=== PATIENT | male | born 1980 | race Caucasian/White ===

== ENCOUNTER 2019-06-24 21:18 | Emergency (ER) | payer SELFPAY ==
[~2019-06-24] VITALS: Ht 177.8 cm; Wt 86.2 kg
[2019-06-24 22:21] LABS: Basophils # (auto) 0.1 uL; Basophils % (auto) 1.3 % (0.0-2.0); Eosinophils # (auto) 0 uL; Hematocrit 37.5 % (41.0-53.0); Hemoglobin 12.7 g/dL (13.5-17.5); Lymphocytes # (auto) 0.2 uL; Lymphocytes % (auto) 5.3 % (10.0-50.0); Mean Corpuscular Hemoglobin 32.8 pg (28.0-32.0); Mean Corpuscular Hgb Conc. 33.9 g/dL (32.0-36.0); Mean Corpuscular Volume 96.8 fL (80.0-100.0); Monocytes # (auto) 0.3 uL; Monocytes % (auto) 8.5 % (0.0-12.0); Neutrophils # (auto) 3.4 uL; Neutrophils % (auto) 84.9 % (37.0-80.0); Platelet Count (auto) 74 10^3/uL (140-450); Red Blood Cells 3.87 10^6/uL (4.5-5.90); Red Cell Distribution Width 13.8 % (11.8-14.3)
[2019-06-24 22:39] LABS: Albumin 4.1 g/dL (3.4-5.0); BUN/Creatinine Ratio 9.1; Calcium 9.1 mg/dL (8.5-10.1); Potassium 3.6 mmol/L (3.5-5.1)
[2019-06-24 22:48] LABS: Bilirubin, Total 0.4 mg/dL (0.2-1.0); Total Protein 8.3 g/dL (6.4-8.2)
[2019-06-25] MEDS ORDERED: SODIUM CHLORIDE 0.9% 1,000 ML IV ONE
[2019-06-25] MEDS ORDERED: LORazepam 2MG/ML-1ML VIAL ONE (00:02)
[2019-06-25] MEDS ORDERED: LORazepam 2MG/ML-1ML VIAL IV ONE (00:15)
[2019-06-25 00:22] LABS: Urine WBC None Seen /hpf (0 - 3)
[2019-06-25] MEDS: LORazepam 2MG/ML-1ML VIAL IV ONE ×2 (00:24)
[2019-06-25 00:30] LABS: Urine Bacteria NONE SEEN /hpf (None Seen); Urine Blood 1+ /uL (Negative); Urine Hyaline Cast FEW /lpf (0 - 2); Urine Specific Gravity 1.021 (1.001-1.035)
[2019-06-25 00:53] LABS: Amphetamine Screen, Urine NEGATIVE (NEGATIVE); Barbiturate Scree,Urine NEGATIVE (NEGATIVE); Benzodiazephine Screen, Urine NEGATIVE (NEGATIVE); Cannabinoid Screen, Urine NEGATIVE (NEGATIVE); Cocaine Screen, Urine NEGATIVE (NEGATIVE); Opiate Scree,Urine NEGATIVE (NEGATIVE); Phencyclidine Screen, Urine NEGATIVE (NEGATIVE)
[2019-06-25 03:00] VITALS: BP 137/92
== END 2019-06-25 03:30 | disposition left against medical advice (07) ==
LOC: EDBD 21:18 → ER 21:22
DX: R56.9 Unspecified convulsions (principal); F10.230 Alcohol dependence with withdrawal, uncomplicated; Y90.0 Blood alcohol level of less than 20 mg/100 ml; Z53.29 Procedure and treatment not carried out because of patient's decision for other reasons
CPT/HCPCS: 36415; 70450; 80053; 80307; 80320; 81001; 83735; 85025; 96361; 96374; 99284; J2060; J7030

== ENCOUNTER 2023-09-28 18:11 | Emergency (ER) | payer MEDICAID ==
[~2023-09-28] VITALS: Ht 182.9 cm; Wt 102.6 kg
[2023-09-28] MEDS ORDERED: HYDROcodone-ACET 10/325MG TAB PO ONE (20:00)
[2023-09-28] MEDS ORDERED: ONDANSETRON ODT 4 MG TAB PO ONE (20:00)
[2023-09-28] MEDS ORDERED: SODIUM CHLORIDE 0.9% 1,000 ML IVB ONE (20:00)
[2023-09-28 20:15] LABS: Basophils # (auto) 0.2 10 ^3/uL (0-0.2); Basophils % (auto) 3.9 % (0.0-2.0); Eosinophils # (auto) 0 10 ^3/uL (0-0.8); Eosinophils % (auto) 0.2 % (0.0-7.0); Hematocrit 41.6 % (41.0-53.0); Hemoglobin 13.5 g/dL (13.5-17.5); Lymphocytes # (auto) 1.2 10 ^3/uL (0.4-5.4); Lymphocytes % (auto) 26.6 % (10.0-50.0); Mean Corpuscular Hemoglobin 32.4 pg (28.0-32.0); Mean Corpuscular Hgb Conc. 32.5 g/dL (32.0-36.0); Mean Corpuscular Volume 99.7 fL (80.0-100.0); Monocytes # (auto) 0.5 10 ^3/uL (0-1.3); Monocytes % (auto) 11.6 % (0.0-12.0); Neutrophils # (auto) 2.6 10 ^3/uL (1.6-8.6); Neutrophils % (auto) 57.7 % (37.0-80.0); Nucleated Red Blood Cells % 0.1 %; Red Blood Cells 4.17 10^6/uL (4.5-5.90); Red Cell Distribution Width 16.3 % (11.8-14.3); White Blood Cell 4.5 10^3/uL (4.4-10.8)
[2023-09-28 20:16] VITALS: O2SAT 100
[2023-09-28] MEDS ORDERED: IOHEXOL 350 MG/ML 100ML IJ ONE (20:18)
[2023-09-28 20:29] LABS: INR 1.39 (0.9-1.15); Partial Thromboplastin Time 28.1 SEC (24.5-34.5); Prothrombin Time 14.3 sec (9.3-11.8)
[2023-09-28 20:40] LABS: Alanine Aminotransferase 58 U/L (7-40); Albumin 3.9 g/dL (3.2-4.8); Alkaline Phosphatase 79 U/L (46-116); Anion Gap 8 (5-15); Aspartate Aminotransferase 47 U/L (13-40); BUN/Creatinine Ratio 8.2 (10.0-20.0); Blood Urea Nitrogen 6 mg/dL (9-23); Calcium 8.4 mg/dL (8.7-10.4); Carbon Dioxide 24 mmol/L (20-30); Chloride 105 mmol/L (98-107); Glucose 79 mg/dL (74-106); Lipase 37 U/L (12-53); Magnesium 1.8 mg/dL (1.6-2.6); Sodium 137 mmol/L (136-145)
[2023-09-28 20:41] LABS: Bilirubin, Total 1.1 mg/dL (0.2-1.0); Total Protein 6.6 g/dL (5.7-8.2)
[2023-09-28 21:14] LABS: Blood Alcohol 52.3 mg/dL (<10)
[2023-09-28 21:38] LABS: Amphetamine Screen, Urine Neg (NEGATIVE); Barbiturate Scree,Urine Neg (NEGATIVE); Benzodiazephine Screen, Urine Neg (NEGATIVE); Cannabinoid Screen, Urine Neg (NEGATIVE); Cocaine Screen, Urine Neg (NEGATIVE); Opiate Scree,Urine Neg (NEGATIVE); Urine Bacteria NONE SEEN /hpf (None Seen); Urine Blood Negative /uL (Negative); Urine Clarity Clear (Clear); Urine Color Colorless (Yellow); Urine Protein, UAD Negative (Negative); Urine Specific Gravity 1.001 (1.001-1.035); Urine Urobilinogen Normal (Negative); Urine WBC <1 /hpf (0 - 3); Urine pH 5.5 (5.0-8.0)
[2023-09-28 21:40] LABS: Phencyclidine Screen, Urine Neg (NEGATIVE)
[2023-09-28] MEDS ORDERED: PANTOPRAZOLE 40 MG/10 ML VIAL INJ IV ONE (23:15)
[2023-09-28] MEDS ORDERED: FUROSEMIDE 40 MG/4 ML VIAL IV ONE (23:15)
[2023-09-29] MEDS ORDERED: IOHEXOL 350 MG/ML 100ML IJ ONE (01:31)
[2023-09-29 02:55] VITALS: BP 106/75; PULSE 89; RESP 17; TEMP 98.2; O2SAT 98
== END 2023-09-29 02:57 | disposition home or self-care (01) ==
LOC: ER 18:11
DX: K70.9 Alcoholic liver disease, unspecified (principal); I50.9 Heart failure, unspecified; R18.8 Other ascites; F10.10 Alcohol abuse, uncomplicated; Z86.2 Personal history of diseases of the blood and blood-forming organs and certain disorders involving the immune mechanism; Z79.899 Other long term (current) drug therapy; Y90.0 Blood alcohol level of less than 20 mg/100 ml
CPT/HCPCS: 36415; 71045; 74177; 80053; 80307; 80320; 81001; 83690; 83735; 85025; 85610; 85730; 96361; 96374; 96375; 99285; C9113; J1940; J7030; Q9967

== ENCOUNTER 2024-03-02 09:24 | Inpatient (IN) | payer MEDICAID ==
[~2024-03-02] VITALS: Ht 185.4 cm; Wt 109.1 kg
[2024-03-02] VITALS (7 sets, daily range): BP systolic 121; BP diastolic 71; PULSE 107–119; RESP 25; O2SAT 94–100
[2024-03-02 10:05] LABS: Basophils # (auto) 0.1 10 ^3/uL (0-0.2); Eosinophils # (auto) 0 10 ^3/uL (0-0.8); Eosinophils % (auto) 0.1 % (0.0-7.0); Hemoglobin 15.1 g/dL (13.5-17.5); Lymphocytes # (auto) 1.7 10 ^3/uL (0.4-5.4); Monocytes # (auto) 0.7 10 ^3/uL (0-1.3); Monocytes % (auto) 11.3 % (0.0-12.0); Nucleated Red Blood Cells % 0.2 %; White Blood Cell 5.9 10^3/uL (4.4-10.8)
[2024-03-02 10:07] LABS: Basophils % (auto) 2.5 % (0.0-2.0); Hematocrit 44.9 % (41.0-53.0); Lymphocytes % (auto) 28.6 % (10.0-50.0); Mean Corpuscular Hemoglobin 34.4 pg (28.0-32.0); Mean Corpuscular Hgb Conc. 33.6 g/dL (32.0-36.0); Mean Corpuscular Volume 102.6 fL (80.0-100.0); Neutrophils # (auto) 3.4 10 ^3/uL (1.6-8.6); Neutrophils % (auto) 57.5 % (37.0-80.0); Red Blood Cells 4.37 10^6/uL (4.5-5.90); Red Cell Distribution Width 14.3 % (11.8-14.3)
[2024-03-02] MEDS: SODIUM CHLORIDE 0.9% 1,000 ML IV ONE ×2 (10:16→10:24)
[2024-03-02] MEDS: AMIODARONE BOLUS KIT 100 ML IV ONE (10:16)
[2024-03-02] MEDS: ONDANSETRON HCL 4 MG/2 ML VIAL IV ONE (10:20)
[2024-03-02] MEDS: MORPHINE SULFATE 4 MG/ML SYR/VIAL IV ONE (10:21)
[2024-03-02 10:25] LABS: Alanine Aminotransferase 446 U/L (7-40); Albumin 4.4 g/dL (3.2-4.8); Alkaline Phosphatase 79 U/L (46-116); Anion Gap 16 (5-15); Aspartate Aminotransferase 613 U/L (13-40); BUN/Creatinine Ratio 13.6 (10.0-20.0); Blood Urea Nitrogen 16 mg/dL (9-23); Calcium 8.6 mg/dL (8.5-10.1); Carbon Dioxide 17 mmol/L (20-30); Chloride 106 mmol/L (98-107); Glucose 144 mg/dL (74-106); Potassium 3.6 mmol/L (3.5-5.1); Sodium 139 mmol/L (136-145)
[2024-03-02 10:26] LABS: Bilirubin, Total 1.1 mg/dL (0.2-1.0); Total Protein 7.2 g/dL (5.7-8.2)
[2024-03-02] MEDS: THIAMINE 100mg/ml INJ (200mg/2ml VIAL) IV ONE (10:50)
[2024-03-02] MEDS: AMIODARONE 450mg/250ml AE 250 ML IV SCH ×2 (10:50→20:00)
[2024-03-02] MEDS: chlordiazePOXIDE HCL 5 MG CAP PO ONE (11:34)
[2024-03-02] MEDS ORDERED: ACETAMINOPHEN 325 MG TAB PO PRN (14:00)
[2024-03-02] MEDS ORDERED: DOCUSATE SOD 100 MG CAP PO PRN (14:00)
[2024-03-02] MEDS ORDERED: NITROGLYCERIN 0.4 MG SL TAB SL PRN (14:00)
[2024-03-02] MEDS ORDERED: HYDROcodone-ACET 5/325MG TAB PO PRN (14:00)
[2024-03-02] MEDS ORDERED: MORPHINE SULFATE INJ 2 MG/ml SYRG IV PRN (14:00)
[2024-03-02] MEDS: ASPirin-EC 325mg tab PO ONE (15:05)
[2024-03-02] MEDS: HEPARIN SODIUM (PORCINE) 5000 UNITS/ML 1ML VIAL SC SCH (15:06)
[2024-03-02] MEDS: ONDANSETRON HCL 4 MG/2 ML VIAL IV PRN (15:12)
[2024-03-02] MEDS: LORazepam 2MG/ML-1ML VIAL IV PRN (16:54)
[2024-03-02 17:03] LABS: Urine Bacteria None Seen /hpf (None Seen)
[2024-03-02 17:17] LABS: Urine Blood Negative /uL (Negative); Urine Clarity Turbid (Clear); Urine Color Yellow (Yellow); Urine Hyaline Cast MOD /lpf (0 - 2); Urine Mucus FEW (None Seen); Urine Protein, UAD 2+ (Negative); Urine Specific Gravity 1.031 (1.001-1.035); Urine Urobilinogen 4 mg/dL (Negative); Urine WBC 4 /hpf (0 - 3); Urine pH 5.5 (5.0-9.0)
[2024-03-02 17:22] LABS: Amphetamine Screen, Urine Neg (NEGATIVE)
[2024-03-02 17:23] LABS: Barbiturate Scree,Urine Neg (NEGATIVE); Benzodiazephine Screen, Urine Neg (NEGATIVE)
[2024-03-02 17:24] LABS: Cannabinoid Screen, Urine Neg (NEGATIVE); Cocaine Screen, Urine Neg (NEGATIVE); Opiate Scree,Urine Pos (NEGATIVE); Phencyclidine Screen, Urine Neg (NEGATIVE)
[2024-03-02] MEDS: FOLIC ACID 1 MG, MULTIPLE VITAMIN 10 ML, MAGNESIUM SULF SDV 50% 8 MEQ, THIAMINE INJ 100... INJ SCH (18:17)
[2024-03-02 18:37] LABS: Base Excess -9.3 mmol/L (-2.0-2.0)
[2024-03-02] MEDS: DOBUTamine 1000MCG/ML 250 ML IV SCH (18:48)
[2024-03-02] MEDS: FUROSEMIDE 20 MG/2 ML VIAL IV ONE (18:48)
[2024-03-02 19:34] LABS: Magnesium 2.3 mg/dL (1.6-2.6)
[2024-03-02] MEDS ORDERED: LORazepam 2MG/ML-1ML VIAL IV PRN ×2 (21:00)
[2024-03-03] VITALS (17 sets, daily range): BP systolic 104–140; BP diastolic 66–88; PULSE 92–110; RESP 17–28; TEMP 98–98.5; O2SAT 91–98
[2024-03-03 05:16] LABS: Eosinophils # (auto) 0 10 ^3/uL (0-0.8); Lymphocytes # (auto) 0.7 10 ^3/uL (0.4-5.4); Monocytes # (auto) 0.8 10 ^3/uL (0-1.3); Nucleated Red Blood Cells % 0.1 %; White Blood Cell 7.5 10^3/uL (4.4-10.8)
[2024-03-03 05:19] LABS: Basophils # (auto) 0.1 10 ^3/uL (0-0.2); Basophils % (auto) 0.7 % (0.0-2.0); Hematocrit 40.8 % (41.0-53.0); Hemoglobin 13.9 g/dL (13.5-17.5); Lymphocytes % (auto) 8.9 % (10.0-50.0); Mean Corpuscular Hemoglobin 34.6 pg (28.0-32.0); Mean Corpuscular Volume 101.8 fL (80.0-100.0); Monocytes % (auto) 11.1 % (0.0-12.0); Neutrophils # (auto) 5.9 10 ^3/uL (1.6-8.6); Neutrophils % (auto) 79.3 % (37.0-80.0); Red Blood Cells 4.01 10^6/uL (4.5-5.90); Red Cell Distribution Width 14.7 % (11.8-14.3)
[2024-03-03 05:34] LABS: Alanine Aminotransferase 617 U/L (7-40); Albumin 4.1 g/dL (3.2-4.8); Alkaline Phosphatase 66 U/L (46-116); Anion Gap 10 (5-15); Aspartate Aminotransferase 860 U/L (13-40); BUN/Creatinine Ratio 12.2 (10.0-20.0); Blood Urea Nitrogen 12 mg/dL (9-23); Calcium 8.7 mg/dL (8.5-10.1); Carbon Dioxide 23 mmol/L (20-30); Chloride 106 mmol/L (98-107); Cholesterol 123 mg/dL (< 200); Glucose 110 mg/dL (74-106); HDL Cholesterol 39 mg/dL (40-59); INR 1.31 (0.9-1.15); LDL Cholesterol 75 mg/dL (< 100); Partial Thromboplastin Time 27.1 SEC (24.5-34.5); Potassium 4.8 mmol/L (3.5-5.1); Prothrombin Time 13.6 sec (9.3-11.8); Sodium 139 mmol/L (136-145); Triglycerides 53 mg/dL (< 150)
[2024-03-03 05:35] LABS: Bilirubin, Total 1.4 mg/dL (0.2-1.0); Total Protein 6.9 g/dL (5.7-8.2)
[2024-03-03] MEDS: ANGIOMAX 250 MG VIAL IV ONE (09:50)
[2024-03-03] MEDS: fentaNYL CITRATE 100 MCG/2 ML VL ONE (09:51)
[2024-03-03] MEDS: MIDAZOLAM HCL 2MG/2ML 2ml VIAL (1mg/ml) ONE (09:51)
[2024-03-03] MEDS: VERAPAMIL 2.5MG/ML INJ 2ML VIAL IV ONE (09:51)
[2024-03-03] MEDS: HEPARIN SODIUM (PORCINE) 5000 UNITS/ML 1ML VIAL ONE (09:52)
[2024-03-03] MEDS: SODIUM CHL 0.9% 0 ML ONE (09:52)
[2024-03-03] MEDS ORDERED: SACUBITRIL-VALSARTAN 24mg/26mg TAB PO SCH (10:00)
[2024-03-03] MEDS: LIDOCAINE 2%HCL (LOCAL ANESTH.) INJ 20ML MDV ONE (10:11)
[2024-03-03] MEDS: IODIXANOL 320MG/ML 100ML BTL IV ONE (10:11)
[2024-03-03 11:21] LABS: Magnesium 1.9 mg/dL (1.6-2.6)
[2024-03-03 11:30] LABS: CRP High Sensitivity 3.14 mg/dL (<1.0)
[2024-03-03] MEDS: METOPROLOL TARTRATE 25 MG TAB PO SCH (11:50)
[2024-03-03] MEDS: ASPirin-EC 81 mg tab PO SCH (11:52)
[2024-03-03] MEDS: FUROSEMIDE 20 MG/2 ML VIAL IV SCH (11:55)
[2024-03-03] MEDS: AMIODARONE 450mg/250ml AE 250 ML IV SCH (12:03)
[2024-03-03] MEDS: SPIRONOLACTONE 25 MG TAB PO SCH (13:45)
[2024-03-03] MEDS: SACUBITRIL-VALSARTAN 24mg/26mg TAB PO SCH (13:46)
[2024-03-03] MEDS: MAGNESIUM SULFATE 1GM/100ML 100 ML IV ONE (13:48)
[2024-03-03] MEDS: PANTOPRAZOLE 40 MG/10 ML VIAL INJ IV SCH (13:49)
[2024-03-03] MEDS: EMPAGLIFLOZIN 10 MG TAB PO SCH (14:15)
[2024-03-03] MEDS: PIPERACILLIN-TAZOB 3.375GM 100 ML IV ONE (14:16)
[2024-03-03 17:09] LABS: Folate (Folic Acid) 17.76 ng/mL (>5.38)
[2024-03-03] MEDS: PIPERACILLIN-TAZOB 3.375GM 100 ML IV SCH (18:00)
[2024-03-04] VITALS (16 sets, daily range): BP systolic 94–115; BP diastolic 61–80; PULSE 84–103; RESP 16–26; TEMP 97.8–98.8; O2SAT 90–100
[2024-03-04 06:28] LABS: Basophils # (auto) 0 10 ^3/uL (0-0.2); Eosinophils # (auto) 0 10 ^3/uL (0-0.8)
[2024-03-04 06:31] LABS: Basophils % (auto) 0.5 % (0.0-2.0); Eosinophils % (auto) 0.1 % (0.0-7.0); Hematocrit 43.4 % (41.0-53.0); Hemoglobin 14.5 g/dL (13.5-17.5); Lymphocytes # (auto) 0.6 10 ^3/uL (0.4-5.4); Mean Corpuscular Hemoglobin 34.1 pg (28.0-32.0); Mean Corpuscular Hgb Conc. 33.3 g/dL (32.0-36.0); Mean Corpuscular Volume 102.4 fL (80.0-100.0); Monocytes # (auto) 1.1 10 ^3/uL (0-1.3); Monocytes % (auto) 15.3 % (0.0-12.0); Neutrophils # (auto) 5.3 10 ^3/uL (1.6-8.6); Neutrophils % (auto) 75.1 % (37.0-80.0); Nucleated Red Blood Cells % 0.2 %; Red Blood Cells 4.23 10^6/uL (4.5-5.90); Red Cell Distribution Width 14.9 % (11.8-14.3); White Blood Cell 7.1 10^3/uL (4.4-10.8)
[2024-03-04 06:33] LABS: Albumin 3.8 g/dL (3.2-4.8); Alkaline Phosphatase 87 U/L (46-116); Anion Gap 9 (5-15); BUN/Creatinine Ratio 12.3 (10.0-20.0); Blood Urea Nitrogen 20 mg/dL (9-23); Calcium 8.8 mg/dL (8.5-10.1); Carbon Dioxide 22 mmol/L (20-30); Chloride 105 mmol/L (98-107); Glucose 126 mg/dL (74-106); Magnesium 2.4 mg/dL (1.6-2.6); Potassium 4.1 mmol/L (3.5-5.1); Sodium 136 mmol/L (136-145)
[2024-03-04 06:34] LABS: Bilirubin, Total 2.8 mg/dL (0.2-1.0); Total Protein 6.7 g/dL (5.7-8.2)
[2024-03-04 07:01] LABS: Alanine Aminotransferase 1389 U/L (7-40)
[2024-03-04 07:02] LABS: Aspartate Aminotransferase 1803 U/L (13-40)
[2024-03-04 08:51] LABS: Hepatitis B Surface Antigen Negative (Negative)
[2024-03-04 09:12] LABS: Hepatitis A Ab IgM Negative
[2024-03-04 09:13] LABS: Hepatitis B Core IgM Negative; Hepatitis C Antibody Negative (Negative)
[2024-03-04] MEDS ORDERED: LIDOCAINE VISCOUS 2% 15ML UD PO ONE (09:15)
[2024-03-04] MEDS ORDERED: fentaNYL CITRATE 100 MCG/2 ML VL IV ONE (09:15)
[2024-03-04] MEDS: LIDOCAINE VISCOUS 2% 15ML UD PO ONE (09:43)
[2024-03-04] MEDS: fentaNYL CITRATE 100 MCG/2 ML VL IV PRN (09:45)
[2024-03-04] MEDS: MIDAZOLAM HCL 2MG/2ML 2ml VIAL (1mg/ml) IV ONE (09:54)
[2024-03-04] MEDS ORDERED: ENOXAPARIN SOD 40 MG/0.4 ML SYRINGE SC SCH (10:00)
[2024-03-04] MEDS: diphenhdrAMINE HCL 50 MG/1 ML VL ONE (10:10)
[2024-03-04] MEDS: diphenhdrAMINE HCL 50 MG/1 ML VL IM ONE (10:10)
[2024-03-04] MEDS: ONDANSETRON HCL 4 MG/2 ML VIAL IV PRN (10:45)
[2024-03-04] MEDS: ONDANSETRON HCL 4 MG/2 ML VIAL ONE (13:23)
[2024-03-04] MEDS: LIDOCAINE VISCOUS 2% 15ML UD ONE (13:23)
[2024-03-04] MEDS: fentaNYL CITRATE 100 MCG/2 ML VL ONE (13:24)
[2024-03-04] MEDS: MIDAZOLAM HCL 2MG/2ML 2ml VIAL (1mg/ml) ONE (13:24)
[2024-03-04] MEDS: PIPERACILLIN-TAZOB 3.375GM 100 ML IV SCH (16:08)
[2024-03-04] MEDS: MEXILETINE HYDROCHLORIDE 150 MG CAP PO SCH (16:25)
[2024-03-04] MEDS: SODIUM CHLORIDE 0.9% 250 ML IV ONE (18:50)
[2024-03-05] VITALS (12 sets, daily range): BP systolic 90–130; BP diastolic 60–91; PULSE 85–107; RESP 12–25; TEMP 97.6–99; O2SAT 93–97
[2024-03-05] MEDS: SODIUM CHLORIDE 0.9% 1,000 ML IV SCH ×2 (00:01→08:00)
[2024-03-05 05:41] LABS: Basophils # (auto) 0.1 10 ^3/uL (0-0.2); Eosinophils # (auto) 0 10 ^3/uL (0-0.8); Lymphocytes # (auto) 1.2 10 ^3/uL (0.4-5.4); Nucleated Red Blood Cells % 0.1 %
[2024-03-05 05:43] LABS: Basophils % (auto) 1.2 % (0.0-2.0); Eosinophils % (auto) 0.1 % (0.0-7.0); Hematocrit 41.9 % (41.0-53.0); Hemoglobin 14.3 g/dL (13.5-17.5); Lymphocytes % (auto) 18.9 % (10.0-50.0); Mean Corpuscular Hemoglobin 34.8 pg (28.0-32.0); Mean Corpuscular Hgb Conc. 34.2 g/dL (32.0-36.0); Mean Corpuscular Volume 101.7 fL (80.0-100.0); Monocytes # (auto) 0.8 10 ^3/uL (0-1.3); Monocytes % (auto) 13.5 % (0.0-12.0); Neutrophils % (auto) 66.3 % (37.0-80.0); Red Blood Cells 4.12 10^6/uL (4.5-5.90); Red Cell Distribution Width 14.3 % (11.8-14.3); White Blood Cell 6.1 10^3/uL (4.4-10.8)
[2024-03-05 06:02] LABS: Alanine Aminotransferase 947 U/L (7-40); Albumin 3.7 g/dL (3.2-4.8); Alkaline Phosphatase 73 U/L (46-116); Anion Gap 12 (5-15); Aspartate Aminotransferase 680 U/L (13-40); BUN/Creatinine Ratio 18.1 (10.0-20.0); Blood Urea Nitrogen 19 mg/dL (9-23); Calcium 8.4 mg/dL (8.7-10.4); Carbon Dioxide 22 mmol/L (20-30); Chloride 103 mmol/L (98-107); Glucose 110 mg/dL (74-106); Magnesium 2.4 mg/dL (1.6-2.6); Potassium 3.7 mmol/L (3.5-5.1); Sodium 137 mmol/L (136-145)
[2024-03-05 06:03] LABS: Bilirubin, Total 1.6 mg/dL (0.2-1.0); Total Protein 6.7 g/dL (5.7-8.2)
[2024-03-05] MEDS: VANCOMYCIN HCL 1000 MG VL ONE ×2 (11:24→16:26)
[2024-03-05] MEDS: VANCOMYCIN 1GM/200ML 200 ML IV ONE (11:25)
[2024-03-05] MEDS: MIDAZOLAM HCL 2MG/2ML 2ml VIAL (1mg/ml) ONE (11:25)
[2024-03-05] MEDS: fentaNYL CITRATE 100 MCG/2 ML VL ONE (11:25)
[2024-03-05] MEDS: LIDOCAINE 2%HCL (LOCAL ANESTH.) INJ 20ML MDV ONE (11:32)
[2024-03-05] MEDS: IODIXANOL 320MG/ML 100ML BTL IV ONE (11:32)
[2024-03-05] MEDS ORDERED: HYDROcodone-ACET 5/325MG TAB PO PRN (15:00)
[2024-03-05] MEDS: MORPHINE SULFATE INJ 2 MG/ml SYRG IV PRN (18:45)
[2024-03-05] MEDS: HEPARIN SODIUM (PORCINE) 5000 UNITS/ML 1ML VIAL SC SCH (21:48)
[2024-03-06] VITALS (8 sets, daily range): BP systolic 108–126; BP diastolic 57–81; PULSE 66–113; RESP 17–18; TEMP 97.8–98.8; O2SAT 93–99
[2024-03-06] MEDS: VANCOMYCIN 1GM/200ML 200 ML IV SCH (00:02)
[2024-03-06 06:59] LABS: Alanine Aminotransferase 823 U/L (7-40); Albumin 3.5 g/dL (3.2-4.8); Alkaline Phosphatase 70 U/L (46-116); Anion Gap 10 (5-15); Aspartate Aminotransferase 445 U/L (13-40); BUN/Creatinine Ratio 16.3 (10.0-20.0); Blood Urea Nitrogen 13 mg/dL (9-23); Calcium 8.3 mg/dL (8.7-10.4); Carbon Dioxide 22 mmol/L (20-30); Chloride 105 mmol/L (98-107); Glucose 111 mg/dL (74-106); Magnesium 2.3 mg/dL (1.6-2.6); Potassium 3.8 mmol/L (3.5-5.1); Sodium 137 mmol/L (136-145)
[2024-03-06 07:00] LABS: Bilirubin, Total 1.3 mg/dL (0.2-1.0); Total Protein 6.3 g/dL (5.7-8.2)
[2024-03-06 07:45] LABS: Hemoglobin 14.1 g/dL (13.5-17.5); Mean Corpuscular Hemoglobin 34.6 pg (28.0-32.0); Mean Corpuscular Volume 101.7 fL (80.0-100.0); White Blood Cell 5.1 10^3/uL (4.4-10.8)
[2024-03-06 07:50] LABS: Hematocrit 41.3 % (41.0-53.0); Red Blood Cells 4.07 10^6/uL (4.5-5.90); Red Cell Distribution Width 14.3 % (11.8-14.3)
[2024-03-06 07:53] LABS: Basophils % (manual) 0 (0.0-2.0); Blast Cells 0; Eosinophils % (manual) 0 (0-7); Metamyelocytes % 0; Myelocytes % 0; Promyelocytes % 0; Reactive Lymphocytes 0
[2024-03-06] MEDS: FUROSEMIDE 40 MG/4 ML VIAL IV ONE (10:22)
[2024-03-06] MEDS: ASPirin 81 mg TAB PO SCH (10:24)
[2024-03-06] MEDS: THIAMINE HCL 100 MG TAB PO SCH (10:25)
[2024-03-06] MEDS: CLOPIDOGREL BISULFATE 75 MG TAB PO SCH (10:25)
[2024-03-06] MEDS: EMPAGLIFLOZIN 10 MG TAB PO SCH (10:25)
[2024-03-06] MEDS: FOLIC ACID 1 MG TAB PO SCH (10:25)
[2024-03-06] MEDS ORDERED: PIPERACILLIN-TAZOB 3.375GM 100 ML IV SCH (12:00)
[2024-03-06 12:13] LABS: Band Neutrophils % (manual) 9; Lymphocytes % (manual) 26 (10.0-50.0); Monocytes % (manual) 10 (0-12); Platelet Estimate Adequate
[2024-03-06] MEDS: PIPERACILLIN-TAZOB 3.375GM 100 ML IV SCH (13:38)
[2024-03-06] MEDS: HEPARIN SODIUM (PORCINE) 5000 UNITS/ML 1ML VIAL SC SCH (16:19)
[2024-03-06] MEDS: SACUBITRIL-VALSARTAN 24mg/26mg TAB PO SCH (21:31)
[2024-03-07] VITALS (8 sets, daily range): BP systolic 96–132; BP diastolic 67–87; PULSE 68–103; RESP 12–20; TEMP 98–99; O2SAT 96–100
[2024-03-07 05:58] LABS: Hemoglobin 13.5 g/dL (13.5-17.5)
[2024-03-07 06:02] LABS: Hematocrit 39.4 % (41.0-53.0); Mean Corpuscular Hemoglobin 34.9 pg (28.0-32.0); Mean Corpuscular Hgb Conc. 34.3 g/dL (32.0-36.0); Mean Corpuscular Volume 101.7 fL (80.0-100.0); Red Blood Cells 3.88 10^6/uL (4.5-5.90); Red Cell Distribution Width 14.8 % (11.8-14.3); White Blood Cell 4.5 10^3/uL (4.4-10.8)
[2024-03-07 06:15] LABS: Basophils % (manual) 0 (0.0-2.0); Blast Cells 0; Eosinophils % (manual) 0 (0-7); Metamyelocytes % 0; Myelocytes % 0; Promyelocytes % 0; Reactive Lymphocytes 0
[2024-03-07 06:19] LABS: Alanine Aminotransferase 596 U/L (7-40); Albumin 3.5 g/dL (3.2-4.8); Alkaline Phosphatase 72 U/L (46-116); Anion Gap 6 (5-15); Aspartate Aminotransferase 258 U/L (13-40); BUN/Creatinine Ratio 16.3 (10.0-20.0); Bilirubin, Total 1.2 mg/dL (0.2-1.0); Blood Urea Nitrogen 15 mg/dL (9-23); Calcium 8.3 mg/dL (8.5-10.1); Carbon Dioxide 26 mmol/L (20-30); Chloride 106 mmol/L (98-107); Glucose 94 mg/dL (74-106); Potassium 3.6 mmol/L (3.5-5.1); Sodium 138 mmol/L (136-145); Total Protein 6.2 g/dL (5.7-8.2)
[2024-03-07 06:27] LABS: CRP High Sensitivity 4.96 mg/dL (<1.0)
[2024-03-07 08:21] LABS: Band Neutrophils % (manual) 2; Lymphocytes % (manual) 22 (10.0-50.0); Monocytes % (manual) 12 (0-12)
[2024-03-07 08:22] LABS: Platelet Estimate Adequate
[2024-03-07] MEDS: SPIRONOLACTONE 25 MG TAB PO SCH (10:00)
[2024-03-07] MEDS ORDERED: DOXYCYCLINE 100 MG TAB/CAP PO SCH (10:00)
[2024-03-07] MEDS: ASPirin 81 mg TAB PO SCH (10:05)
[2024-03-07] MEDS: CLOPIDOGREL BISULFATE 75 MG TAB PO SCH (10:06)
[2024-03-07] MEDS ORDERED: SPIR25TA8 PO (11:20)
[2024-03-07] MEDS ORDERED: EMPA1TAB PO (11:20)
[2024-03-07] MEDS ORDERED: METO25TA5 PO (11:20)
[2024-03-07] MEDS ORDERED: SACU1TAB PO (11:20)
[2024-03-07] MEDS ORDERED: ASPI-325 PO (11:33)
[2024-03-07] MEDS ORDERED: CLOP75TA70 PO (11:33)
[2024-03-07] MEDS: FUROSEMIDE 20 MG/2 ML VIAL IV ONE (16:40)
[2024-03-07] MEDS ORDERED: METOPROLOL TARTRATE 25 MG TAB PO ONE (18:15)
[2024-03-08 01:00] VITALS: BP 93/64; PULSE 86; RESP 18; TEMP 98.1; O2SAT 95
[2024-03-08 05:00] VITALS: BP 102/72; PULSE 94; RESP 18; TEMP 98.4; O2SAT 95
[2024-03-08 07:52] LABS: Alanine Aminotransferase 448 U/L (7-40); Albumin 3.4 g/dL (3.2-4.8); Alkaline Phosphatase 64 U/L (46-116); Anion Gap 8 (5-15); Aspartate Aminotransferase 117 U/L (13-40); Blood Urea Nitrogen 12 mg/dL (9-23); Calcium 8.2 mg/dL (8.5-10.1); Carbon Dioxide 24 mmol/L (20-30); Chloride 104 mmol/L (98-107); Glucose 101 mg/dL (74-106); Potassium 3.4 mmol/L (3.5-5.1); Sodium 136 mmol/L (136-145)
[2024-03-08 07:53] LABS: Bilirubin, Total 1.1 mg/dL (0.2-1.0)
[2024-03-08 08:00] VITALS: PULSE 99
[2024-03-08 08:08] LABS: BUN/Creatinine Ratio 12.5 (10.0-20.0)
[2024-03-08 08:15] VITALS: PULSE 92; RESP 15; O2SAT 100
[2024-03-08] MEDS ORDERED: MEX150C PO (08:50)
[2024-03-08 09:00] VITALS: BP 102/71; PULSE 92; RESP 15; TEMP 99; O2SAT 100
[2024-03-08] MEDS: POTASSIUM EFFERVESENT TAB 25 MEQ PO ONE (09:42)
[2024-03-09 18:07] LABS: Anticardiolipin IgG Antibody <9 GPL U/mL (0-14); Anticardiolipin IgM Antibody 25 MPL U/mL (0-12)
[2024-03-09 21:06] LABS: Antithrombin III Antigen 73 % (72-124); Dilute Prothrombin Time(dPT) 52.4 sec (0.0-47.6); Hexagonal Phase Phospholipid 5 sec (0-11); PTT-LA 44.1 sec (0.0-43.5); PTT-LA Mix 41.2 sec (0.0-40.5); Protein S Antigen Free 78 % (61-136); Proten S Antigen Total 56 % (60-150); Thrombin Time 15.4 sec (0.0-23.0); dRVVT 43.6 sec (0.0-47.0)
[2024-03-09 23:07] LABS: Lupus Interpretation Comment: (.)
[2024-03-12 15:07] LABS: Protein C Antigen 34 % (60-150)
== END 2024-03-08 13:07 | disposition home or self-care (01) | DRG 179 ==
LOC: ER 09:24 → EDBD 09:24 → TELE-CENTR 14:05 → OVERFLOW 14:05 → TELE-CENTR 03-03 17:48
PROVIDERS: ADMIT Internal Medicine Pulmonary Disease; ATTEND Emergency Medicine
PROC: 5A09357 Assistance with Respiratory Ventilation, Less than 24 Consecutive Hours, Continuous Positive Airway Pressure (ICD-10-PCS; 2024-03-02)
PROC: B211YZZ Fluoroscopy of Multiple Coronary Arteries using Other Contrast (ICD-10-PCS; principal; 2024-03-03)
PROC: 4A023N7 Measurement of Cardiac Sampling and Pressure, Left Heart, Percutaneous Approach (ICD-10-PCS; 2024-03-03)
PROC: B215YZZ Fluoroscopy of Left Heart using Other Contrast (ICD-10-PCS; 2024-03-03)
PROC: 5A09357 Assistance with Respiratory Ventilation, Less than 24 Consecutive Hours, Continuous Positive Airway Pressure (ICD-10-PCS; 2024-03-03)
PROC: B24BZZ4 Ultrasonography of Heart with Aorta, Transesophageal (ICD-10-PCS; 2024-03-04)
PROC: 0JH609Z Insertion of Cardiac Resynchronization Defibrillator Pulse Generator into Chest Subcutaneous Tissue and Fascia, Open Approach (ICD-10-PCS; 2024-03-05)
PROC: 02HK3KZ Insertion of Defibrillator Lead into Right Ventricle, Percutaneous Approach (ICD-10-PCS; 2024-03-05)
PROC: 02HL3KZ Insertion of Defibrillator Lead into Left Ventricle, Percutaneous Approach (ICD-10-PCS; 2024-03-05)
DX: I11.0 Hypertensive heart disease with heart failure (principal); J96.01 Acute respiratory failure with hypoxia; I46.9 Cardiac arrest, cause unspecified; J69.0 Pneumonitis due to inhalation of food and vomit; E72.20 Disorder of urea cycle metabolism, unspecified; D69.6 Thrombocytopenia, unspecified; I27.20 Pulmonary hypertension, unspecified; I21.A1 Myocardial infarction type 2; I50.23 Acute on chronic systolic (congestive) heart failure; D50.9 Iron deficiency anemia, unspecified; F17.200 Nicotine dependence, unspecified, uncomplicated; I49.8 Other specified cardiac arrhythmias; I42.6 Alcoholic cardiomyopathy; N17.9 Acute kidney failure, unspecified; I47.20 Ventricular tachycardia, unspecified; F10.139 Alcohol abuse with withdrawal, unspecified; Y90.9 Presence of alcohol in blood, level not specified; R74.01 Elevation of levels of liver transaminase levels; E66.9 Obesity, unspecified; I08.1 Rheumatic disorders of both mitral and tricuspid valves; I44.7 Left bundle-branch block, unspecified; I49.01 Ventricular fibrillation; G40.509 Epileptic seizures related to external causes, not intractable, without status epilepticus; Z86.73 Personal history of transient ischemic attack (TIA), and cerebral infarction without residual deficits; Z68.31 Body mass index [BMI] 31.0-31.9, adult
CPT/HCPCS: 33225; 33249; 36415; 36600; 70450; 70551; 71045; 71046; 76705; 80053; 80061; 80074; 80307; 80320; 81001; 81241; 82140; 82607; 82746; 82805; 82962; 83036; 83735; 83880; 84443; 84484; 85007; 85025; 85027; 85301; 85302; 85305; 85306; 85379; 85610; 85613; 85670; 85705; 85730; 85732; 86141; 86147; 86850; 86900; 86901; 93005; 93306; 93312; 93458; 93886; 93970; 93971; 94660; 95819; 99152; 99291; C9113; G0378; J2250; J2405; J2543; Q9967

== ENCOUNTER 2024-12-31 07:23 | Emergency (ER) | payer MEDICAID ==
[~2024-12-31] VITALS: Ht 167.6 cm; Wt 97.5 kg
[~2024-12-31 07:23] MED LIST: ASPI-325 PO; CLOP75TA70 PO; EMPA1TAB PO; METO25TA5 PO; MEX150C PO; SACU1TAB PO; SPIR25TA8 PO
--- NOTE | 2024-12-31 07:44 | ED.PDOC ---
History of Present Illness HPI Comments 44 year old male presents to the ED with chief complaint of ETOH withdrawals. Patient reports that he had recently been on a 1 week ETOH binge drinking 10 beers a day. Patient relays that he stopped drinking 2 days ago and has since then felt tremors and fell at home, wanting to be de-toxed at this time. Patient states he has history of cardiac arrest last year and he quit drinking up until his binge last week. Patient denies any abdominal pain, N/V/D, dizziness, headache, chest pain, or SOB. Chief Complaint: Withdrawal Time Seen by MD: 07:40 Primary Care Provider: ? Reviewed Notes: Nurses Notes, Medications, Allergies Allergies: Coded Allergies: NO KNOWN ALLERGIES (Unverified , 06/24/19) Home Meds Active Scripts Mexiletine Hcl (Mexiletine Hcl) 150 Mg Cap, 150 MG PO Q8HR for 30 Days, #63 CAP 2 Refills Prov:DARVIN GUDINO RESIDENT 03/08/24 Clopidogrel Bisulfate (CLOPIDOGREL) 75 Mg Tab, 75 MG PO DAILY for 30 Days, #30 TAB Prov:VICTORINA HARRIS RESIDENT 03/07/24 Aspirin (Aspirin Low Dose) 81 Mg Tab, 81 MG PO DAILY for 30 Days, #30 TAB Prov:VICTORINA HARRIS RESIDENT 03/07/24 Metoprolol Tartrate (Metoprolol Tartrate) 25 Mg Tab, 12.5 MG PO BID for 30 Days, #30 TAB Prov:VICTORINA HARRIS 03/07/24 Empagliflozin (Jardiance) 10 Mg Tab, 10 MG PO DAILY for 30 Days, #30 TAB Prov:VICTORINA HARRIS RESIDENT 03/07/24 Spironolactone (Spironolactone) 25 Mg Tab, 12.5 MG PO DAILY for 30 Days, #15 TAB Prov:VICTORINA HARRIS RESIDENT 03/07/24 Sacubitril-Valsartan (Entresto 24-26 mg) 1 Tab Tab, 0.5 TAB PO BID for 30 Days, #30 TAB Prov:VICTORINA HARRIS RESIDENT 03/07/24 Information Source: Patient Mode of Arrival: Ambulatory Severity: Moderate Timing: Days Duration: Since onset Prehospital treatment: None Past Medical History PAST MEDICAL HISTORY: Denies Surgical History: Denies all surgeries Family History Family History: Reviewed,noncontributory to illness, Unknown Social History Smoker: Non-Smoker Alcohol: Heavy Drugs: Denies Drug Use Lives In: Home Constitutional: denies: chills, diaphoresis, fatigue, fever, malaise, sweats, weakness, others EENTM: denies: blurred vision, double vision, ear bleeding, ear discharge, ear drainage, ear pain, ear ringing, eye pain, eye redness, hearing loss, mouth pain, mouth swelling, nasal discharge, nose bleeding, nose congestion, nose pain, photophobia, tearing, throat pain, throat swelling, voice changes, others Respiratory: denies: cough, hemoptysis, orthopnea, SOB at rest, shortness of breath, SOB with excertion, stridor, wheezing, others Cardiovascular: denies: chest pain, dizzy spells, diaphoresis, Dyspnea on exertion, edema, irregular heart beat, left arm pain, lightheadedness, palpitations, PND, syncope, others Gastrointestinal: denies: abdomen distended, abdominal pain, blood streaked bowels, constipated, diarrhea, dysphagia, difficulty swallowing, hematemesis, melena, nausea, poor appetite, poor fluid intake, rectal bleeding, rectal pain, vomiting, others Genitourinary: denies: burning, dysuria, flank pain, frequency, hematuria, incontinence, penile discharge, penile sore, pain, testicle pain, testicle swelling, urgency, others Neurological: reports: tremors; denies: dizziness, fainting, headache, left sided numbness, left sided weakness, numbness, paresthesia, pre-existing deficit, right sided numbness, right sided weakness, seizure, speech problems, tingling, weakness, others Musculoskeletal: denies: back pain, gout, joint pain, joint swelling, muscle pain, muscle stiffness, neck pain, others Integumetry: denies: bruises, change in color, change in hair/nails, dryness, laceration, lesions, lumps, rash, wounds, others Allergic/Immunocompromised: denies: Difficulty Healing, Frequent Infections, Hives, Itching, others Hematologic/Lymphatic: denies: anemia, blood clots, easy bleeding, easy bruising, swollen glands, others Endocrine: denies: excessive hunger, excessive sweating, excessive thirst, excessive urination, flushing, intolerance to cold, intolerance to heat, unexplained weight gain, unexplained weight loss, others Psychiatric: denies: anxiety, bipolar disorder, depression, hopeless, panic disorder, schizophrenia, sleepless, suicidal, others All Other Systems: Reviewed and Negative Physical Exam General Appearance: No Apparent Distress, Other (Tremulous) HEENT: Normal ENT Inspection, PERRL/EOMI, Other (Tongue fasciculations and dry mucous membranes) Neck: Full Range of Motion, Non-Tender, Normal, Normal Inspection Respiratory: Chest Non-Tender, Lungs Clear, No Accessory Muscle Use, No Respiratory Distress, Normal Breath Sounds Cardiovascular: No Edema, No JVD, No Murmur, No Gallop, Normal Peripheral Pulses, Regular Rate/Rhythm Breast Exam: Deferred Gastrointestinal: No Organomegaly, Non Tender, No Pulsatile Mass, Normal Bowel Sounds, Soft Genitalia: Deferred Pelvic: Deferred Rectal: Deferred Extremities: No calf tenderness, Normal capillary refill, Normal inspection, Normal range of motion, Non-tender, No pedal edema Musculoskeletal : Apperance: Normal Neurologic: Alert, rock dust sprayer II-XII nml as Tested, No Motor Deficits, Normal Affect, Normal Mood, No Sensory Deficits Cerebellar Function: Normal Reflexes: Normal Skin: Dry, Normal Color, Warm Lymphatic: No Adenopathy Was a procedure done? Was a procedure done?: No Differential Dx Considerations may include: Alcohol withdrawal, polysubstance abuse, anxiety X-Ray, Labs, Meds, VS Vital Signs Date Time Temp Pulse Resp B/P (MAP) Pulse Ox O2 Delivery O2 Flow Rate FiO2 12/31/24 08:29 97.6 93 16 117/84 (95) 97 97.6 12/31/24 07:41 Room Air* 0 21 12/31/24 07:39 98.0 81 19 160/103 (122) 98 98.0 Lab Test 12/31/24 09:51 12/31/24 08:51 12/31/24 07:49 Range/Units Lactic Acid Level Pending 2.5 *H 0.4-2.0 mmol/L Troponin I High Sensitivity Pending 11 14 </=54 ng/L White Blood Count 4.8 4.4-10.8 10^3/uL Red Blood Count 5.00 4.5-5.90 10^6/uL Hemoglobin 15.8 13.5-17.5 g/dL Hematocrit 46.7 41.0-53.0 % Mean Corpuscular Volume 93.3 80.0-100.0 fL Mean Corpuscular Hemoglobin 31.6 28.0-32.0 pg Mean Corpuscular Hemoglobin Concent 33.8 32.0-36.0 g/dL Red Cell Distribution Width 13.5 11.8-14.3 % Platelet Count 120 L 140-450 10^3/uL Mean Platelet Volume 8.6 6.9-10.8 fL Neutrophils (%) (Auto) 53.4 37.0-80.0 % Lymphocytes (%) (Auto) 30.1 10.0-50.0 % Monocytes (%) (Auto) 16.0 H 0.0-12.0 % Eosinophils (%) (Auto) 0.0 0.0-7.0 % Basophils (%) (Auto) 0.5 0.0-2.0 % Neutrophils # (Auto) 2.5 1.6-8.6 10 ^3/uL Lymphocytes # (Auto) 1.4 0.4-5.4 10 ^3/uL Monocytes # (Auto) 0.8 0-1.3 10 ^3/uL Eosinophils # (Auto) 0 0-0.8 10 ^3/uL Basophils # (Auto) 0 0-0.2 10 ^3/uL Nucleated Red Blood Cells 0.1 % Sodium Level 132 L 136-145 mmol/L Potassium Level 3.4 L 3.5-5.1 mmol/L Chloride Level 94 L 98-107 mmol/L Carbon Dioxide Level 24 20-31 mmol/L Anion Gap 14 5-15 Blood Urea Nitrogen 15 9-23 mg/dL Creatinine 0.94 0.700-1.30 mg/dL Glomerular Filtration Rate Calc 104 >90 mL/min BUN/Creatinine Ratio 16.0 10.0-20.0 Serum Glucose 104 74-106 mg/dL Calcium Level 10.3 8.7-10.4 mg/dL Plasma/Serum Blood Alcohol < 3.0 <10 mg/dL Current Medications Medications (Trade) Dose Ordered Sig/Umair Route Start Time Stop Time Status Last Admin Sodium Chloride 1,000 ml @ 1,000 mls/hr Q1H ONCE IV 12/31/24 07:45 12/31/24 08:44 DC 12/31/24 07:54 Ondansetron HCl (Zofran) 4 mg ONCE ONCE IV 12/31/24 07:45 12/31/24 07:46 DC 12/31/24 07:54 Lorazepam (Ativan Inj) 2 mg ONCE ONCE IV 12/31/24 07:45 12/31/24 07:46 DC 12/31/24 07:54 Chlordiazepoxide HCl (Librium Capsule) 25 mg ONCE ONCE PO 12/31/24 07:45 12/31/24 07:46 DC 12/31/24 07:54 Time of 1ST Reevaluation: 08:40 Reevaluation 1ST: Unchanged Patient Education/Counseling: Diagnosis, Treatment Family Education/Counseling: No Family Present Additional Information Previous medical encounters reviewed: 03/02/24 for cardiac arrest with ROSC The following tests were ordered, and results were reviewed by me: CBC, BMP Additional Information was gathered from interviewing the following independent historians: None I reviewed and agreed with the following test results read by other providers: None I discussed treatment and results with medical personnel and: Patient Comprehensive systems review obtained and negative except for what is stated in the HPI. Departure 1 Departure Time of Disposition: 10:25 (Patient presents with symptoms of alcohol withdrawal. We will admit patient for further workup and expert consultation) Impression: Primary Impression: Alcohol withdrawal delirium Disposition: ADMITTED INPATIENT Admit to: Med Surg Condition: Serious Critical Care Note Critical Care Time?: Yes Critical care comment: Acute alcohol withdrawal Authorized and Performed by: Alessio Madrigal MD Total critical care time: Approximately 34 minutes Due to a high probability of clinically significant, life threatening deterioration, the patient required my highest level of preparedness to interven e emergently and I personally spent this critical care time directly and personally managing the patient. This critical care time included obtaining a history; examining the patient; pulse oximetry; ordering and review of studies; arranging urgent treatment with development of a management plan; evaluation of patient's response to treatment; frequent reassessment; and, discussions with other providers. This critical care time was performed to assess and manage the high probability of imminent, life-threatening deterioration that could result in multi-organ failure. It was exclusive of separately billable procedures and treating other patients and teaching time. Please see my other sections and the rest of the note for further information on patient assessment and treatment. Stability Stability form required: No Heart Score Heart Score: Heart Score Response (Comments) Value History N/A 0 EKG N/A 0 Age N/A 0 Risk Factors N/A 0 Troponin N/A 0 Total 0 I personally scribed for ALESSIO MADRIGAL MD ([email or web address]) on 12/31/24 at 07:44. Electro nically submitted by Tico Summers ([email or web address]). ALESSIO MADRIGAL MD Dec 31, 2024 07:44
[2024-12-31] MEDS: SODIUM CHLORIDE 0.9% 1,000 ML IV ONE (07:54)
[2024-12-31] MEDS: LORazepam 2MG/ML-1ML VIAL IV ONE (07:54)
[2024-12-31] MEDS: ONDANSETRON HCL 4 MG/2 ML VIAL IV ONE (07:54)
[2024-12-31] MEDS: chlordiazePOXIDE HCL 25 MG CAP PO ONE (07:54)
[2024-12-31 08:04] LABS: Basophils # (auto) 0 10 ^3/uL (0-0.2); Basophils % (auto) 0.5 % (0.0-2.0); Eosinophils # (auto) 0 10 ^3/uL (0-0.8); Hematocrit 46.7 % (41.0-53.0); Hemoglobin 15.8 g/dL (13.5-17.5); Lymphocytes # (auto) 1.4 10 ^3/uL (0.4-5.4); Lymphocytes % (auto) 30.1 % (10.0-50.0); Mean Corpuscular Hemoglobin 31.6 pg (28.0-32.0); Mean Corpuscular Hgb Conc. 33.8 g/dL (32.0-36.0); Mean Corpuscular Volume 93.3 fL (80.0-100.0); Monocytes # (auto) 0.8 10 ^3/uL (0-1.3); Neutrophils # (auto) 2.5 10 ^3/uL (1.6-8.6); Neutrophils % (auto) 53.4 % (37.0-80.0); Nucleated Red Blood Cells % 0.1 %; Platelet Count (auto) 120 10^3/uL (140-450); Red Cell Distribution Width 13.5 % (11.8-14.3); White Blood Cell 4.8 10^3/uL (4.4-10.8)
[2024-12-31 08:14] LABS: Anion Gap 14 (5-15); Carbon Dioxide 24 mmol/L (20-31)
[2024-12-31 08:15] LABS: Calcium 10.3 mg/dL (8.7-10.4); Chloride 94 mmol/L (98-107); Potassium 3.4 mmol/L (3.5-5.1); Sodium 132 mmol/L (136-145)
[2024-12-31 08:19] LABS: Blood Urea Nitrogen 15 mg/dL (9-23); Glucose 104 mg/dL (74-106)
[2024-12-31 08:23] LABS: Lactic Acid w/Reflex 2.5 mmol/L (0.4-2.0)
[2024-12-31 08:24] LABS: Blood Alcohol < 3.0 mg/dL (<10)
[2024-12-31 10:32] VITALS: BP 112/80; PULSE 90; RESP 16; TEMP 98; O2SAT 98
== END 2024-12-31 11:15 | disposition left against medical advice (07) ==
LOC: ER 07:23
DX: F10.231 Alcohol dependence with withdrawal delirium (principal); Z79.02 Long term (current) use of antithrombotics/antiplatelets; Z79.82 Long term (current) use of aspirin; Z79.84 Long term (current) use of oral hypoglycemic drugs; Z79.899 Other long term (current) drug therapy; Y90.9 Presence of alcohol in blood, level not specified
CPT/HCPCS: 36415; 80048; 80320; 83605; 84484; 85025; 96361; 96374; 96375; 99284; J2060; J2405; J7030